=== PATIENT | female | born 1990 | race Caucasian/White ===

== ENCOUNTER 2016-08-23 09:49 | Emergency (ER) | payer SELFPAY ==
[~2016-08-23] VITALS: Ht 175.3 cm; Wt 126.0 kg
[2016-08-23 09:50] VITALS: BP 157/75; PULSE 70; RESP 20; TEMP 98; O2SAT 97
--- NOTE | 2016-08-23 11:05 | PD ---
HPI Chief Complaint: Back/ Neck Pain or Injury Time Seen by Provider: 11:04 Travel History International Travel<30 days: No Contact w/Intl Traveler<30days: No Traveled to known affect area: No History of Present Illness HPI 26-year-old female presents to the emergency department for evaluation of low back pain for 3 days. The patient is Japanese-speaking and a commercial correspondent is used for the entire duration of the visit. 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 States that when this happened she strained her lower back. States that she is a pain in her lower back since this occurred. The pain is aggravated with movement of her back and her legs. Alleviated with rest. She is not taking anything for her symptoms so far. Denies any prior injury or trauma to her back. Denies any fever, chills, nausea, vomiting, numbness or tingling, weakness, saddle anesthesia, bowel or bladder incontinence. Denies . No other complaints. PFSH Past Medical History Medical History: Denies Significant Hx ?: Not Social History Alcohol Use: No Tobacco Use: No Substance Use: No Allergies-Medications (Allergen,Severity, Reaction): Coded Allergies: No Known Allergies (Unverified , 08/23/16) Reported Meds & Prescriptions Reported Meds & Active Scripts Active Naproxen 500 Mg Tab 500 Mg PO BID 7 Days Robaxin (Methocarbamol) 750 Mg Tab 750 Mg PO QID 5 Days Review of Systems Except as stated in HPI: all other systems reviewed are Neg Physical Exam Narrative GENERAL: Obese female patient in no acute distress who is nontoxic appearing. SKIN: Warm and dry. HEAD: Normocephalic and atraumatic. EYES: No injection, drainage, or hyphema noted. PERRLA. EOMI. ENT: No nasal drainage noted. Oropharynx is clear. NECK: Supple and the trachea is midline. CARDIOVASCULAR: Regular rate and rhythm. RESPIRATORY: Breath sounds are equal bilaterally with no accessory muscle use, wheezing, rhonchi, or crackles. MUSCULOSKELETAL: No obvious deformities, swelling, cyanosis, or ecchymosis is present throughout the upper and lower extremities. Patient has full range of motion without any signs of neurovascular compromise. Strength 5/5 upper and lower extremities equal bilaterally. BACK: Mild tenderness to palpation of bilateral lumbar paraspinal muscles. No obvious deformities, bony point tenderness, or crepitus noted throughout the thoracic and lumbar vertebrae. NEUROLOGICAL: Awake, alert, and oriented. Normal speech and gait. Cranial nerves are grossly intact. Data Data Last Documented VS Vital Signs Date Time Temp Pulse Resp B/P Pulse Ox O2 Delivery O2 Flow Rate FiO2 08/23/16 09:50 98.0 70 20 157/75 97 Room Air MDM Medical Decision Making Medical Screen Exam Complete: Yes Emergency Medical Condition: Yes Differential Diagnosis Muscle strain versus muscle spasm versus discogenic pain Narrative Course 26-year-old female presents to the emergency department for evaluation of low back pain status post slip causing her to strain her lower back. Patient is afebrile, vital signs are stable. No midline bony abnormality or tenderness. No focal neurologic deficits. This is muscle strain. Patient will be treated with muscle relaxers and NSAIDs. Discussed supportive care and advised follow- up with her PCP. Patient verbalizes understanding and agreement with treatment plan. Diagnosis Primary Impression: Acute low back pain Qualified Code: M54.5 - Acute bilateral low back pain without sciatica Referrals: Primary Care Physician Patient Instructions: Acute Low Back Pain (ED), General Instructions Departure Forms: Tests/Procedures, Work Release Enter return to work date: Aug 25, 2016 Additional Instructions: Take medications as prescribed with food and a full glass of water. Do not take Robaxin with alcohol or while driving. Follow-up with your Primary Care Physician. Return to the ED for any acute worsening of symptoms. Med/Other Pt SpecificInfo: Prescription(s) given Scripts Naproxen 500 Mg [id number] Mg PO BID 7 Days Ref 0 Prov:Alissa Fernández MD 08/23/16 Methocarbamol (Robaxin)750 Mg [id number] Mg PO QID 5 Days Ref 0 Prov:Alissa Fernández MD 08/23/16 Disposition: 01 DISCHARGE HOME Condition: Stable Areli Vazquez Aug 23, 2016 11:05
[2016-08-23] MEDS ORDERED: ROBA750T PO (11:35)
[2016-08-23] MEDS ORDERED: NAPR500T PO (11:35)
== END 2016-08-23 11:52 | disposition home or self-care (01) ==
LOC: NEPB 09:49
DX: M54.5 Low back pain (principal); S39.012A Strain of muscle, fascia and tendon of lower back, initial encounter; W01.0XXA Fall on same level from slipping, tripping and stumbling without subsequent striking against object, initial encounter; Y93.E9 Activity, other interior property and clothing maintenance; Y92.59 Other trade areas as the place of occurrence of the external cause; Y99.0 Civilian activity done for income or pay
CPT/HCPCS: 99283

== ENCOUNTER 2017-08-19 09:19 | Emergency (ER) | payer MEDICAID ==
[~2017-08-19] VITALS: Ht 175.3 cm; Wt 130.0 kg
[~2017-08-19 09:19] MED LIST: NAPR500T2 PO; ROBA750T PO
[2017-08-19 09:21] VITALS: BP 134/73; PULSE 99; RESP 14; TEMP 98.2; O2SAT 99
--- NOTE | 2017-08-19 09:53 | PD ---
HPI Chief Complaint: Cold / Flu Symptoms Time Seen by Provider: 09:52 Travel History International Travel<30 days: No Contact w/Intl Traveler<30days: No Traveled to known affect area: No History of Present Illness HPI 27-year-old female presents the emergency department with 2 day history of upper respiratory symptoms including headache, congestion, sore throat, postnasal drip, rhinitis, and cough with wheezing. She denies productive cough. She denies nausea or vomiting. She is unsure of fever. She is a smoker, and has never needed an inhaler in the past. She denies significant pain. She has no known drug allergies. PFSH Past Medical History ?: Not LMP: 08/17 Social History Alcohol Use: Yes Tobacco Use: Yes Substance Use: No Allergies-Medications (Allergen,Severity, Reaction): Coded Allergies: No Known Allergies (Verified Adverse Reaction, Unknown, 08/19/17) Reported Meds & Prescriptions Reported Meds & Active Scripts Active Ventolin Hfa 18 GM Inh (Albuterol Sulfate) 90 Mcg/Act Aer 2 Puff INH Q4-6H PRN Prednisone 20 Mg Tab 20 Mg PO BID 5 Days Azithromycin 250 Mg Tab 250 Mg PO DIRECTED Take 2 tabs (500 mg) on day 1 then 1 tab daily x 4 days. Review of Systems Except as stated in HPI: all other systems reviewed are Neg General / Constitutional: Positive: Fever, Chills (subjective) Eyes: No: Visual changes HENT: Positive: Headaches, Sore Throat, Rhinitis, Rhinorrhea, Congestion, No: Vertigo, Lightheadedness, Nosebleed, Neck Stiffness, Dental Difficulties, Earache Cardiovascular: No: Chest Pain or Discomfort Respiratory: Positive: Cough, Wheezing, No: Shortness of Breath, Sneezing Gastrointestinal: No: Nausea, Vomiting, Abdominal Pain Genitourinary: No: Dysuria Musculoskeletal: No: Pain Skin: No Rash Neurologic: No: Weakness Psychiatric: No: Depression Endocrine: No: Polydipsia Hematologic/Lymphatic: No: Easy Bruising Physical Exam Narrative GENERAL: Patient appears ill but not septic. SKIN: Warm and dry. Normal color. Normal turgor. HEAD: Atraumatic. Normocephalic. EYES: Pupils equal and round. No scleral icterus. No injection or drainage. ENT: No nasal bleeding or discharge. Mucous membranes pink and moist. TMs are dull but not injected bilaterally. She has clear rhinitis. Posterior pharynx is somewhat erythematous without significant swelling or exudate. Uvula is midline. Airway is patent. No sinus tenderness with palpation or percussion. NECK: Trachea midline. Supple nontender. CARDIOVASCULAR: Regular rate and rhythm. RESPIRATORY: No accessory muscle use. Mild diffuse wheezes to auscultation. No rales or rhonchi. Breath sounds equal bilaterally. GASTROINTESTINAL: Abdomen soft, non-tender, nondistended. Hepatic and splenic margins not palpable. MUSCULOSKELETAL: Extremities without clubbing, cyanosis, or edema. No obvious deformities. NEUROLOGICAL: Awake and alert. No obvious cranial nerve deficits. Motor grossly within normal limits. Five out of 5 muscle strength in the arms and legs. Normal speech. PSYCHIATRIC: Appropriate mood and affect; insight and judgment normal. Data Data Last Documented VS Vital Signs Date Time Temp Pulse Resp B/P (MAP) Pulse Ox O2 Delivery O2 Flow Rate FiO2 08/19/17 09:21 98.2 99 14 134/73 (93) 99 Room Air Orders Orders Prednisone (Deltasone) (08/19/17 10:15) Albuterol-Ipratropium Neb (Duoneb Neb) (08/19/17 10:15) Ed Discharge Order (08/19/17 11:05) [facility] Medical Decision Making Medical Screen Exam Complete: Yes Emergency Medical Condition: Yes Differential Diagnosis Influenza. Bronchitis. Wheezing. Narrative Course Patient is given DuoNeb 3. She is given prednisone 40 mg by mouth. Patient will be continued on prednisone 20 mg twice a day 5 days. Patient is given azithromycin Dosepak as prescribed. Patient is given albuterol metered-dose inhaler 2 puffs every 4-6 hours when necessary wheeze. Patient is given a work note until Tuesday. Patient is to rest, push fluids and stop smoking immediately. Patient can return if symptoms worsen as needed. Diagnosis Primary Impression: Acute wheezy bronchitis Referrals: [facility] Patient Instructions: Albuterol (By breathing), General Instructions, Prednisone (By mouth), Wheezing (ED) Departure Forms: Work Release Enter return to work date: Aug 22, 2017 Additional Instructions: Patient will be continued on prednisone 20 mg twice a day 5 days. Patient is given azithromycin Dosepak as prescribed. Patient is given albuterol metered-dose inhaler 2 puffs every 4-6 hours when necessary wheeze. Patient is given a work note until Tuesday. Patient is to rest, push fluids and stop smoking immediately. Patient can return if symptoms worsen as needed. Med/Other Pt SpecificInfo: Prescription(s) given Scripts Albuterol 18 GM Inh (Ventolin Hfa 18 GM Inh) 90 Mcg/Act Aer 2 PUFF INH Q4-6H Y for SHORTNESS OF BREATH, #1 INHALER 0 Refills Prov: Huey Nunn MD 08/19/17 Prednisone (Prednisone) 20 Mg Tab 20 MG PO BID for 5 Days, #10 TAB 0 Refills Prov: Huey Nunn MD 08/19/17 Azithromycin (Azithromycin) 250 Mg Tab 250 MG PO DIRECTED for Infection, #6 TAB 0 Refills Take 2 tabs (500 mg) on day 1 then 1 tab daily x 4 days. Prov: Huey Nunn MD 08/19/17 Disposition: 01 DISCHARGE HOME Condition: Stable Edgardo Oquendo Aug 19, 2017 09:53
[2017-08-19] MEDS ORDERED: predniSONE 20 MG TAB PO ONE (10:15)
[2017-08-19] MEDS: RESP: ALBUTEROL 2.5 MG/IPRATROPIUM 0.5 MG NEB (SCH) INH (10:20)
[2017-08-19] MEDS ORDERED: VENTAER INH (11:05)
[2017-08-19] MEDS ORDERED: AZIT250T3 PO (11:05)
[2017-08-19] MEDS ORDERED: PRED20 PO (11:05)
== END 2017-08-19 11:19 | disposition home or self-care (01) ==
LOC: NEPD 09:19
DX: J20.9 Acute bronchitis, unspecified (principal); R06.2 Wheezing; R07.0 Pain in throat; R09.82 Postnasal drip; J31.0 Chronic rhinitis; R51 Headache; Z72.0 Tobacco use
CPT/HCPCS: 94640; 94664; 99283; J7512